=== PATIENT | male | born 1980 | race Caucasian/White ===

== ENCOUNTER 2019-04-11 11:34 | Observation (INO) | payer MEDICAID, SELFPAY ==
[2019-04-11 12:09] VITALS: BMI 22.0
[2019-04-11 12:29] VITALS: BP 128/89; PULSE 72; RESP 16; TEMP 36.8; O2SAT 97
[2019-04-11 13:08] LABS: Absolute Lymphocyte Count 2.26 X10^3/ul (0.83-4.51); Basophil# 0.02 X10^3/uL; Basophil% 0.2 % (0-1); Eosinophil# 0.07 X10^3/uL; Eosinophils% 0.6 % (0-5); Hemoglobin 15.1 g/dl (13.0-16.5); Lymphocyte # 2.26 X10^3/ul (4.0); Lymphocyte % 18.5 % (19-41); Mean Corp Hgb Conc 34.3 g/gl (32-36); Mean Corpuscular Hgb 28.3 pg (27.0-32.0); Mean Corpuscular Volume 82.4 fL (80-94); Monocyte# 0.82 X10^3/uL; Monocyte% 6.7 % (0-10); Neutrophil # 9.04 X10^3/uL (2.7-7.7); Neutrophil % 73.8 % (47-70); POSITIVE COUNT NO; POSITIVE DIFFERENTIAL NO; POSITIVE MORPHOLOGY NO; Platelet Count 289 K/mm3 (150-450); RBC Distribution Width CV 14.7 % (11.6-14.6); RBC Distribution Width SD 44.2 fl (35.1-43.9); Red Blood Count 5.34 M/mm3 (4.6-6.2); White Blood Count 12.2 K/mm3 (4.4-11.0)
[2019-04-11 13:21] LABS: AST(SGOT) 32 U/L (15-37); Alanine Aminotransfer ALT/SGPT 40 U/L (16-61); Albumin, Serum 3.8 g/dL (3.2-5.0); Alkaline Phosphatase 80 U/L (45-117); Anion Gap 5 (5-15); BUN 11 mg/dL (7-18); BUN/Creat Ratio 12.6 RATIO (10-20); Calcium,Total 9.5 mg/dL (8.5-10.1); Chloride 110 mmol/L (98-107); Creatinine, Serum 0.87 mg/dL (0.70-1.30); EST Glomerular Filtration Rate 103 mL/min (>60); Est Glom Filt Rate - Afr Amer 125 mL/min (>60); Globulin 3.9 g/dL (2.2-4.2); Glucose 99 mg/dL (74-106); Potassium 4.2 mmol/L (3.5-5.1); Protein, Total 7.7 g/dL (6.4-8.2); Sodium Level 143 mmol/L (136-145)
[2019-04-11] MEDS: Buprenorphine HCl 2 MG TAB.SUBL SL ×2 (13:37→21:22)
[2019-04-11] MEDS: Dicyclomine 10 MG Capsule 20 MG PO (13:37)
[2019-04-11 13:40] VITALS: BP 121/77; PULSE 67; RESP 18; TEMP 36.4
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
[2019-04-11 16:16] LABS: Amphetamine Urine VISTA NEGATIVE (<1000 ng/mL); Barbiturate Urine VISTA NEGATIVE (< 200 ng/mL); Benzodiazepine Urine VISTA NEGATIVE (< 200 ng/mL); Cocaine Urine VISTA NEGATIVE (< 300 ng/mL); Ecstacy Urine VISTA NEGATIVE (< 500 ng/mL); Methadone Urine VISTA NEGATIVE (< 300 ng/mL); PCP Urine VISTA NEGATIVE (< 25 ng/mL); THC Urine VISTA POSITIVE (< 50 ng/mL); Vista UDS pH Range 7
[2019-04-11] MEDS: hydrOXYzine PAM 25 MG Capsule 50 MG PO (16:51)
[2019-04-11 17:48] VITALS: BP 117/72; PULSE 77; RESP 16; TEMP 36.7
[2019-04-11 21:15] VITALS: BP 120/63; PULSE 66; PULSE 67; RESP 16; TEMP 37.4; O2SAT 96
[2019-04-11] MEDS: Pramipexole Di-HCl 0.25 MG Tablet PO (21:22)
[2019-04-11] MEDS: Ibuprofen 600 MG Tablet PO (21:22)
[2019-04-11] MEDS: traZODone 50 MG Tablet PO (21:23)
[2019-04-12] VITALS (8 sets, daily range): BP systolic 106–127; BP diastolic 66–76; PULSE 59–86; RESP 16–18; TEMP 36.4–37.2; O2SAT 94–98
[2019-04-12 05:07] LABS: HEPATITIS B SURFACE AG Negative (Negative); Hepatitis A AB, Total Negative (Negative); Hepatitis A IgM Antibody Negative (Negative); Hepatitis B Core AB IgM Negative (Negative); Hepatitis B Core Ab Total Negative (Negative); Hepatitis C Ab <0.1 s/co ratio (0.0-0.9)
[2019-04-12] MEDS: Buprenorphine HCl 2 MG TAB.SUBL SL ×3 (05:34→22:09)
[2019-04-12] MEDS: Ibuprofen 600 MG Tablet PO ×3 (05:38→22:06)
[2019-04-12] MEDS: hydrOXYzine PAM 25 MG Capsule 50 MG PO (10:14)
[2019-04-12] MEDS: Acetaminophen 500 MG Tablet PO (10:14)
--- NOTE | 2019-04-12 10:52 | PCM.PROGNOTE ---
Patient Problems: Active and Suspected Problems Opiate withdrawal (Acute) Depression (Suspected) Subjective: Afebrile Vital signs stable No complaints Hepatitis panel is pending - Physical Exam General: Alert, Cooperative Oral: Moist Mucosa Neck: Supple Lungs: Clear to auscultation Cardiovascular: Regular rate, Regular Rhythm, Normal S1, Normal S2 Abdomen: Bowel Sounds Present, Soft, Non Tender, Non-Distended Psych/Mental Status: Normal Affect, Appropriate Vital Signs Temp Pulse Resp BP Pulse Ox 98.0 F 86 18 116/68 98 04/12/19 10:00 04/12/19 10:00 04/12/19 10:00 04/12/19 10:00 04/12/19 10:00 Oxygen Delivery Method Room Air Weight: 145 lb 1.027 oz Body Mass Index (BMI) 22.0 Intake and Output for Last 24 Hours 04/10/19 04/11/19 04/12/19 23:59 23:59 23:59 Intake Total 520 / 520 Balance 520 / 520 Laboratory Tests Past 24 Hrs 04/11/19 04/11/19 04/11/19 12:55 12:55 13:53 WBC 12.2 H RBC 5.34 Hgb 15.1 Hct 44.0 MCV 82.4 MCH 28.3 MCHC 34.3 RDW 14.7 H RDW Differential 44.2 H Plt Count 289 MPV 10.0 Immature Gran % (Auto) 0.200 Neut % (Auto) 73.8 H Lymph % (Auto) 18.5 L [place] % (Auto) 6.7 Eos % (Auto) 0.6 Baso % (Auto) 0.2 Absolute Neuts (auto) 9.0 H Absolute Lymphs (auto) 2.26 Total Counted Not Reportable Sodium 143 Potassium 4.2 Chloride 110 H Carbon Dioxide 28.0 Anion Gap 5 BUN 11 Creatinine 0.87 Estim Creat Clear Calc 105.00 Est GFR (MDRD) Af Amer 125 Est GFR (MDRD) Non-Af 103 BUN/Creatinine Ratio 12.6 Glucose 99 Calcium 9.5 Total Bilirubin 0.20 AST 32 ALT 40 Alkaline Phosphatase 80 Total Protein 7.7 Albumin 3.8 Globulin 3.9 Albumin/Globulin Ratio 1.0 Urine Opiates Screen Urine Methadone Screen Ur Barbiturates Screen Ur Phencyclidine Scrn Ur Amphetamines Screen U Methamphetamin-MDMA U Benzodiazepines Scrn Urine Cocaine Screen U Cannabinoids Screen Ur Drug Screen Comment Hepatitis A IgM Ab Pending Hepatitis A Ab Total Pending Hep Bs Antigen Pending Hep B Core Total Ab Pending Hep B Core IgM Ab Pending 04/11/19 14:58 WBC RBC Hgb Hct MCV MCH MCHC RDW RDW Differential Plt Count MPV Immature Gran % (Auto) Neut % (Auto) Lymph % (Auto) [place] % (Auto) Eos % (Auto) Baso % (Auto) Absolute Neuts (auto) Absolute Lymphs (auto) Total Counted Sodium Potassium Chloride Carbon Dioxide Anion Gap BUN Creatinine Estim Creat Clear Calc Est GFR (MDRD) Af Amer Est GFR (MDRD) Non-Af BUN/Creatinine Ratio Glucose Calcium Total Bilirubin AST ALT Alkaline Phosphatase Total Protein Albumin Globulin Albumin/Globulin Ratio Urine Opiates Screen NEGATIVE Urine Methadone Screen NEGATIVE Ur Barbiturates Screen NEGATIVE Ur Phencyclidine Scrn NEGATIVE Ur Amphetamines Screen NEGATIVE U Methamphetamin-MDMA NEGATIVE U Benzodiazepines Scrn NEGATIVE Urine Cocaine Screen NEGATIVE U Cannabinoids Screen POSITIVE H Ur Drug Screen Comment Hepatitis A IgM Ab Hepatitis A Ab Total Hep Bs Antigen Hep B Core Total Ab Hep B Core IgM Ab Medical Necessity - Tobacco Use Smoking Status: Current every day smoker Tobacco Use: Cigarettes Assessment/Plan All Active Problems Opiate withdrawal (Acute) Impressions 1. Acute opiate withdrawal 2. Opiate dependence-heroin, no IV use 3. Tobacco dependence 4. Cannabis use 5. Occasional cocaine use continue the suboxone taper - wants in treatment at [place] Code Visit Inpatient E&M: 40389 [facility] Hosp L1
[2019-04-12] MEDS: traZODone 50 MG Tablet PO (22:06)
[2019-04-12] MEDS: Pramipexole Di-HCl 0.25 MG Tablet PO (22:09)
[2019-04-13 03:30] VITALS: BP 110/69; PULSE 61; RESP 16; TEMP 36.7; O2SAT 98
[2019-04-13] MEDS: Ibuprofen 600 MG Tablet PO ×3 (05:32→23:06)
[2019-04-13] MEDS: Buprenorphine HCl 2 MG TAB.SUBL SL ×2 (05:32→17:22)
[2019-04-13 08:23] VITALS: BP 109/64; PULSE 58; RESP 18; TEMP 36.5
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
[2019-04-13 10:53] LABS: Hep B Surface Antibodies Non Reactive (.)
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
[2019-04-13] MEDS: hydrOXYzine PAM 25 MG Capsule 50 MG PO ×2 (14:27→23:06)
[2019-04-13 14:30] VITALS: BP 137/77; PULSE 88; RESP 18; TEMP 36.9
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
[2019-04-13 17:22] VITALS: BP 114/64; PULSE 78; RESP 18; TEMP 36.9
[2019-04-13] MEDS: cloNIDine HCl 0.1 MG Tablet PO (19:24)
[2019-04-13 22:00] VITALS: BP 112/62; PULSE 66; RESP 16; TEMP 36.9
[2019-04-13] MEDS: traZODone 50 MG Tablet PO (23:06)
[2019-04-14 02:00] VITALS: BP 113/73; PULSE 65; RESP 18; TEMP 36.7
[2019-04-14] MEDS: Buprenorphine HCl 2 MG TAB.SUBL SL (05:36)
[2019-04-14] MEDS: Ibuprofen 600 MG Tablet PO (05:36)
[2019-04-14] MEDS: hydrOXYzine PAM 25 MG Capsule 50 MG PO (05:36)
[2019-04-14 08:40] VITALS: BP 108/60; PULSE 68; RESP 18; TEMP 36.4; O2SAT 96
[2019-04-14 08:45] VITALS: BP 108/60; PULSE 68; RESP 18; TEMP 36.4
--- NOTE | 2019-04-14 10:02 | DCINST_ITS ---
- Discharge Diagnoses Current Active Problems: Current Active and Chronic Problems Opiate addiction (Chronic) Tobacco dependence (Chronic) Opiate withdrawal (Acute) Chronic facial pain (Chronic) You will use the following diet at home:: Regular Your food should be the consistency of: Regular Discharge Activity: May Not Drive Call your doctor if you observe: Fever of 101 or Higher, Change in Color, Inability to urinate, Inability to have a bowel movement, Shortness of breath, Dizziness, Fainting spells, Swelling in the ankles, Chest pain Allergies/Adverse Reactions: Allergies No Known Allergies Allergy (Verified 04/11/19 12:48) Medications to take at Discharge Nicotine [Nicotine Patch] 21 mg TRANSDERM. DAILY #30 patch.[id number] 04/14/19 The following prescriptions were given: Nicotine [Nicotine Patch] 21 mg TRANSDERM. DAILY #30 patch.[email or web address] Prescription Printed Primary Care Physician: Care Physician,No Primary [Primary Care Provider] - Please follow up with your Primary Care Physician in: in 1-2 week Test Results: Test results from this visit will be discussed in further detail at your follow- up appointment, if applicable.
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
== END 2019-04-14 10:55 | disposition home or self-care (01) | DRG 773 ==
PROVIDERS: Admitting Provider Internal Medicine; Visit Provider Internal Medicine
DX: F11.23 Opioid dependence with withdrawal (principal); G89.29 Other chronic pain; F14.90 Cocaine use, unspecified, uncomplicated; F17.210 Nicotine dependence, cigarettes, uncomplicated; F12.90 Cannabis use, unspecified, uncomplicated; R51 Headache; F32.9 Major depressive disorder, single episode, unspecified
CPT/HCPCS: 36415; 80053; 80307; 85025; 86704; 86705; 86706; 86708; 86709; 86803; 87340; 97802; 99218; 99406; G0378; G0379